=== PATIENT | male | born 1975 | race Caucasian/White ===

== ENCOUNTER 2018-11-03 20:09 | Emergency (ER) | payer SELFPAY ==
[~2018-11-03] VITALS: Ht 172.7 cm; Wt 81.6 kg
--- NOTE | 2018-11-03 20:11 | ED.ADGEN ---
Past History Past Medical History: Alcoholism, Other Smoking: Cigarettes Drug Use: Marijuana Adult General Chief Complaint Chief Complaint ".. I just got out of the [facility].. my girl friend had me arrested.. and I noticed my feet are numb .. 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 No history of injury. Patient does have a history of polysubstance abuse including alcohol abuse. No recent travel. Denies trauma. No history of fever. No history immunosuppression given. Patient denies any problems with defecation or urination. Patient has vibratory 128 sensation in feet but states it is less than it is in his hands. Does have 1-2 beat clonus with dorsal flexion and patellar DTRs. Distal capillary refill in feet is equal to what is in his hands. Patient recently released from a [facility] and was told to come into [facility] emergency department. Review of Systems Review of Systems Constitutional: Denies fever or chills [] Eyes: Denies change in visual acuity, redness, or eye pain [] HENT: Denies nasal congestion or sore throat [] Respiratory: Denies cough or shortness of breath [] Cardiovascular: No additional information not addressed in HPI [] GI: Denies abdominal pain, nausea, vomiting, bloody stools or diarrhea [] : Denies dysuria or hematuria [] Musculoskeletal: Denies back pain or joint pain []complains of bilateral feet numbness and pain Integument: Denies rash or skin lesions [] Neurologic: Denies headache, focal weakness or sensory changes [] Endocrine: Denies polyuria or polydipsia [] All other systems were reviewed and found to be within normal limits, except as documented in this note. Family History Family History Diabetes and hypertension Current Medications Current Medications Current Medications Medications (Trade) Dose Ordered Sig/Dinh Start Time Stop Time Status Last Admin Dose Admin Albuterol Sulfate (Ventolin Hfa Inhaler) 2 puff 1X ONCE 11/03/18 22:00 11/03/18 22:01 DC 11/03/18 21:51 2 PUFF Aspirin (Children'S Aspirin) 324 mg 1X ONCE 11/03/18 22:00 11/03/18 22:01 DC 11/03/18 21:51 324 MG Multivitamins/ Minerals 10 ml/ Folic Acid 1 mg/ Thiamine HCl 100 mg/Lactated Ringer's 1,011.2 ml @ 1,011.2 mls/hr 1X ONCE 11/03/18 22:00 11/03/18 22:59 DC 11/03/18 22:08 1,011.2 MLS/HR See nursing for home meds Allergies Allergies Allergies Coded Allergies Type Severity Reaction Last Updated Verified No Known Drug Allergies 11/03/18 No No known drug allergies Physical Exam Physical Exam Constitutional: , no acute distress, non-toxic appearance. [] HENT: Normocephalic, atraumatic, bilateral external ears normal, oropharynx moist, no oral exudates, nose normal. [] Eyes: PERRLA, EOMI, conjunctiva normal, no discharge. [] Neck: Normal range of motion, no tenderness, supple, no stridor. [] Cardiovascular:Heart rate regular rhythm, no murmur [] Lungs & Thorax: Bilateral breath sounds equal apex with scattered wheezes on auscultation [] Abdomen: Bowel sounds normal, soft, no tenderness, no masses, no pulsatile masses. [] No saddle loss noted. Skin: Warm, dry, no erythema, no rash. [] Back: No tenderness, no CVA tenderness. [] Extremities: No tenderness, no cyanosis, no clubbing, ROM intact, no edema. [] Neurologic: Alert and oriented X 3, normal motor function, normal sensory function, no focal deficits noted. [] Vib. 128 present in both feet. Some clonus 1-2 beat with forced dorsal flexeion and patellar reflex. Psychologic: Affect anxious l, judgement normal, mood normal. [] Current Patient Data Vital Signs Vital Signs Date Time Temp Pulse Resp B/P (MAP) Pulse Ox O2 Delivery O2 Flow Rate FiO2 11/03/18 23:00 96 18 130/88 (102) 97 Room Air 11/03/18 20:09 98.3 Lab Results Laboratory Tests Test 11/03/18 20:20 11/03/18 21:15 Urine Collection Type Unknown Urine Color Colorless Urine Clarity Clear Urine pH 7.0 Urine Specific [place] <=1.005 Urine Protein Neg (NEG-TRACE) Urine Glucose (UA) Neg mg/dL (NEG) Urine Ketones (Stick) Neg mg/dL (NEG) Urine Blood Neg (NEG) Urine Nitrite Neg (NEG) Urine Bilirubin Neg (NEG) Urine Urobilinogen Dipstick 0.2 mg/dL (0.2 mg/dL) Urine Leukocyte Esterase Neg (NEG) Urine RBC 0 /HPF (0-2) Urine WBC Occ /HPF (0-4) Urine Squamous Epithelial Cells None /LPF Urine Bacteria 0 /HPF (0-FEW) Urine Opiates Screen Neg (NEG) Urine Methadone Screen Neg (NEG) Urine Barbiturates Neg (NEG) Urine Phencyclidine Screen Neg (NEG) Urine Amphetamine/Methamphetamine Neg (NEG) Urine Benzodiazepines Screen Neg (NEG) Urine Cocaine Screen Neg (NEG) Urine Cannabinoids Screen Neg (NEG) Urine Ethyl Alcohol Pos (NEG) White Blood Count 6.0 x10^3/uL (4.0-11.0) Red Blood Count 5.19 x10^6/uL (4.30-5.70) Hemoglobin 17.5 g/dL (13.0-17.5) Hematocrit 50.2 % (39.0-53.0) Mean Corpuscular Volume 97 fL (79-100) Mean Corpuscular Hemoglobin 34 pg (25-35) Mean Corpuscular Hemoglobin Concent 35 g/dL (31-37) Red Cell Distribution Width 13.5 % (11.5-14.5) Platelet Count 193 x10^3/uL (140-400) Neutrophils (%) (Auto) 55 % (31-73) Lymphocytes (%) (Auto) 30 % (24-48) Monocytes (%) (Auto) 12 % (0-9) H Eosinophils (%) (Auto) 2 % (0-3) Basophils (%) (Auto) 1 % (0-3) Neutrophils # (Auto) 3.3 x10^3uL (1.8-7.7) Lymphocytes # (Auto) 1.8 x10^3/uL (1.0-4.8) Monocytes # (Auto) 0.7 x10^3/uL (0.0-1.1) Eosinophils # (Auto) 0.1 x10^3/uL (0.0-0.7) Basophils # (Auto) 0.0 x10^3/uL (0.0-0.2) Erythrocyte Sedimentation Rate 1 (0-15) Prothrombin Time 10.5 SEC (9.4-11.4) Prothrombin Time INR 1.1 (0.9-1.1) PTT 26 SEC (23-33) Sodium Level 146 mmol/L (136-145) H Potassium Level 3.4 mmol/L (3.5-5.1) L Chloride Level 105 mmol/L (98-107) Carbon Dioxide Level 30 mmol/L (21-32) Anion Gap 11 (6-14) Blood Urea Nitrogen 8 mg/dL (8-26) Creatinine 0.8 mg/dL (0.7-1.3) Estimated GFR (Cockcroft-Gault) 106.5 Glucose Level 100 mg/dL (70-99) H Calcium Level 8.8 mg/dL (8.5-10.1) Magnesium Level 2.1 mg/dL (1.8-2.4) Total Bilirubin 0.4 mg/dL (0.2-1.0) Direct Bilirubin 0.1 mg/dL (0.0-0.2) Aspartate Amino Transferase (AST) 102 U/L (15-37) H Alanine Aminotransferase (ALT) 140 U/L (16-63) H Alkaline Phosphatase 81 U/L (46-116) Ammonia < 10 mcmol/L (11-34) L Creatine Kinase 697 U/L (39-308) H Troponin I Quantitative < 0.017 ng/mL (0-0.055) KV-Jgy-A-Type Natriuretic Peptide 64 pg/mL (0-124) Total Protein 6.8 g/dL (6.4-8.2) Albumin 3.9 g/dL (3.4-5.0) Ethyl Alcohol Level 250 mg/dL (0-10) H EKG EKG [] Radiology/Procedures Radiology/Procedures CT concentric []disc dz L3,4,5. - Mild- see formal report when available. Course & Med Decision Making Course & Med Decision Making Pertinent Labs and Imaging studies reviewed. (See chart for details). Continue B complex vitamins. Stop alcohol and illicit drug use. Stop smoking. Followup with primary and neurology. Tylenol and Ibuprofen for discomfort. Return if any concerns. [] Final Impression Final Impression 1. Plantar- Stocking Neuropathy 2. Hx. Alcohol Abuse 3. Hx. Polysubstance Abuse 4. Tobacco Abuse[] 5. Concentric Disc Dz L 3,4,5. 6. Elevated AST ALT 102/140 Dragon Disclaimer Dragon Disclaimer This electronic medical record was generated, in whole or in part, using a voice recognition dictation system. RELL MORRISON MD Nov 03, 2018 20:11
--- NOTE | 2018-11-03 21:18 | EKG ---
[address] [address] Test Date: 2018-11-03 Test Time: 21:11:07 Pat Name: LOUANN MYERS Department: Room: Gender: M S[employer]aker: : [id number] Requested By: RELL MORRISON Order Number: [id number] Reading MD: Measurements Intervals [place] Rate: 94 P: 56 GA: 148 QRS: 42 QRSD: 94 T: 22 QT: 360 QTc: 450 Interpretive Statements SINUS RHYTHM NO SPECIFIC ECG ABNORMALITIES RI6.01 Unconfirmed report No previous ECG available for comparison
[2018-11-03 21:49] LABS: BASO % 1 % (0-3); EOS # 0.1 x10^3/uL (0.0-0.7); EOS % 2 % (0-3); HEMATOCRIT 50.2 % (39.0-53.0); HEMOGLOBIN 17.5 g/dL (13.0-17.5); LYMPH # 1.8 x10^3/uL (1.0-4.8); LYMPH % 30 % (24-48); MEAN CORPUSCULAR HEMOGLOBIN 34 pg (25-35); MEAN CORPUSCULAR HGB CONC 35 g/dL (31-37); MEAN CORPUSCULAR VOLUME 97 fL (79-100); MONO # 0.7 x10^3/uL (0.0-1.1); MONO % 12 % (0-9); NEUT # 3.3 x10^3uL (1.8-7.7); NEUT % 55 % (31-73); PLATELET COUNT 193 x10^3/uL (140-400); RED BLOOD COUNT 5.19 x10^6/uL (4.30-5.70); RED CELL DISTRIBUTION WIDTH 13.5 % (11.5-14.5)
[2018-11-03] MEDS ORDERED: MVI, ADULT NO.4 WITH VIT K 10 ML, FOLIC ACID SYRINGE for ER 1 MG, THIAMINE INJ 100 MG i... IV ONE ×4 (22:00)
[2018-11-03] MEDS ORDERED: ASPIRIN 81 MG TAB.CHEW PO ONE (22:00)
[2018-11-03] MEDS ORDERED: ALBUTEROL SULFATE 8GM INHALER. INH ONE (22:00)
[2018-11-03 22:07] LABS: ALBUMIN 3.9 g/dL (3.4-5.0); CALCIUM 8.8 mg/dL (8.5-10.1); CREATININE 0.8 mg/dL (0.7-1.3); DIRECT BILIRUBIN 0.1 mg/dL (0.0-0.2); GFR 106.5; MAGNESIUM 2.1 mg/dL (1.8-2.4); POTASSIUM 3.4 mmol/L (3.5-5.1); TOTAL BILIRUBIN 0.4 mg/dL (0.2-1.0); TOTAL PROTEIN 6.8 g/dL (6.4-8.2)
[2018-11-03 22:08] LABS: BARBITURATES NEG (NEG); BENZODIAZEPINES NEG (NEG); CANNABINOIDS NEG (NEG); COCAINE NEG (NEG); METHADONE NEG (NEG); OPIATES NEG (NEG); PHENCYCLIDINE NEG (NEG)
[2018-11-03 22:09] LABS: AMPHETAMINE/METHAMPHETAMINE NEG (NEG)
--- NOTE | 2018-11-03 22:13 | RAD ---
Examination: CT LUMBAR SPINE WO CONTRAST History: Clonus, feet numbness and tingling, weakness Comparison/Correlation: None Findings: Axial images of the lumbar spine were obtained. Sagittal and coronal reformatted images were provided. Alignment is normal. Mild L3-4 and L4-5 disc space narrowing is present. Concentric disc bulge at L3-4 and L4-5 noted with mild thecal sac effacement. L3-4 spinal canal narrowing is mild. Mild ligament of flavum hypertrophy at these levels noted. There is no effacement of the exiting nerve roots definitely identified. Vertebral body heights are adequate. Visualized retroperitoneal soft tissues are unremarkable. Impression: Concentric disc bulge at L3-4 with mild spinal canal narrowing. Mild L4-5 concentric disc bulge. No definite effacement of exiting nerve roots. Electronically signed by: Austen Murray MD (11/03/2018 10:09 PM) [facility]
[2018-11-03 22:22] LABS: BACTERIA,URINE 0 /HPF (0-FEW); BILIRUBIN,URINE NEG (NEG); CLARITY,URINE CLEAR; COLOR,URINE COLORLESS; GLUCOSE,URINE NEG (NEG); NITRITE,URINE NEG (NEG); RBC,URINE 0 /HPF (0-2); UROBILINOGEN,URINE 0.2 mg/dL (0.2 mg/dL); WBC,URINE OCC /HPF (0-4)
[2018-11-03 23:00] VITALS: BP 130/88
[2018-11-03 23:03] LABS: SEDIMENTATION RATE 1 (0-15)
--- NOTE | 2018-11-03 23:56 | RAD ---
Examination: CHEST PA LATERAL History: Cough, tingling in legs, weakness Comparison/Correlation: None Findings: PA and lateral views of chest were obtained. Heart size and pulmonary vasculature are normal. No infiltrate, pleural effusion, or pneumothorax. Bony structures are unremarkable. Impression: No active disease. Electronically signed by: Austen Murray MD (11/03/2018 11:52 PM) [facility]
== END 2018-11-03 23:00 | disposition home or self-care (01) ==
LOC: ER 20:09
DX: G57.63 Lesion of plantar nerve, bilateral lower limbs (principal); F10.20 Alcohol dependence, uncomplicated; F17.210 Nicotine dependence, cigarettes, uncomplicated; F19.10 Other psychoactive substance abuse, uncomplicated; F12.10 Cannabis abuse, uncomplicated; M51.86 Other intervertebral disc disorders, lumbar region; R74.0 Nonspecific elevation of levels of transaminase and lactic acid dehydrogenase [LDH]; Y90.8 Blood alcohol level of 240 mg/100 ml or more
CPT/HCPCS: 36415; 71046; 72131; 80048; 80076; 80307; 81001; 82140; 82550; 83735; 83880; 84443; 84484; 85025; 85610; 85651; 85730; 93005; 94640; 96365; 99284; G0480; J7120; J7613; 94664

== ENCOUNTER 2019-03-07 22:47 | Emergency (ER) | payer SELFPAY ==
[~2019-03-07] VITALS: Ht 172.7 cm; Wt 81.6 kg
--- NOTE | 2019-03-07 22:55 | ED.ADGEN ---
Past History Past Medical History: Alcoholism, Other Smoking: Cigarettes Alcohol Use: Heavy Drug Use: Marijuana Adult General Chief Complaint Chief Complaint ".. I just want to go to hotel..."..."I was just drinking some beer and whiskey tonight... I usually drink vodka.. just let me go.. I ve got to be at work this morning.. I work at [employer]... " HPI HPI Patient is a 43 year old male who presents with head lacerations and hematoma. Pt. PD referral from out front of jail. Pt. found in street. Pt appear very intoxicated and large hematoma to posterior scalp. Pt. has two laceration to posterior scalp. Pt. admits to drinking beer and whiskey tonight. . . Pt. does not remember hx prior fall and post fall. Pt. does not remember last tetanus. Refuses to wear C- collar and keeps removing his pressure dressing on his scalp lacerations. Pt. moving all extremities on request. Is discoordinated. Has a strong smell intoxicants on his breath. Constantly needs to be reminded to stay in bed and cooperated with exam. Review of Systems Review of Systems Constitutional: Denies fever or chills [] Eyes: Denies change in visual acuity, redness, or eye pain [] HENT: Denies nasal congestion or sore throat [] Respiratory: Denies cough or shortness of breath [] Cardiovascular: No additional information not addressed in HPI [] GI: Denies abdominal pain, nausea, vomiting, bloody stools or diarrhea [] : Denies dysuria or hematuria [] Musculoskeletal: Denies back pain or joint pain [] Integument: Denies rash or skin lesions [] Neurologic:Complaints of headache,. Denies focal weakness or sensory changes [] Endocrine: Denies polyuria or polydipsia [] All other systems were reviewed and found to be within normal limits, except as documented in this note. Family History Family History Non-contributory Current Medications Current Medications Current Medications Medications (Trade) Dose Ordered Sig/Dinh Start Time Stop Time Status Last Admin Dose Admin Diphtheria/ Tetanus/Acell Pertussis (Boostrix) 0.5 ml ONCE ONCE 03/07/19 23:30 03/07/19 23:31 DC 03/07/19 23:30 0.5 ML Folic Acid (FOLIC ACID SYRINGE for ER) 5 mg STK-MED ONCE 03/08/19 00:03 03/08/19 00:04 DC Lidocaine HCl 20 ml 1X ONCE 03/07/19 23:30 03/07/19 23:31 DC 03/07/19 23:30 20 ML Multivitamins/ Minerals (Infuvite Adult) 10 ml STK-MED ONCE 03/08/19 00:03 03/08/19 00:04 DC Multivitamins/ Minerals 10 ml/ Folic Acid 1 mg/ Thiamine HCl 100 mg/Lactated Ringer's 1,011.2 ml @ 1,011.2 mls/hr 1X ONCE 03/08/19 02:15 03/08/19 02:40 DC 03/08/19 01:00 1,011.2 MLS/HR Thiamine HCl (Thiamine Im) 200 mg STK-MED ONCE 03/08/19 00:03 03/08/19 00:04 DC Allergies Allergies Allergies Coded Allergies Type Severity Reaction Last Updated Verified No Known Drug Allergies 11/03/18 No Physical Exam Physical Exam Constitutional: Moderately acue distress, very intoxicated in appearance. [] HENT: Normocephalic, larger hematoma and two laceration posterior scalp. , bilateral external ears normal, oropharynx moist, no oral exudates, nose normal. Very poor dentition. Eyes: PERRLA, EOMI, conjunctiva normal, no discharge. [] Neck: Normal range of motion, no tenderness, supple, no stridor. [] Refuses to wear collar. Cardiovascular:Heart rate regular rhythm, no murmur [] Lungs & Thorax: Bilateral breath sounds equal at apexes with scattered wheezes on auscultation [] Abdomen: Bowel sounds normal, soft, no tenderness, no masses, no pulsatile masses. [] Skin: Warm, dry, no erythema, no rash. [] Back: No tenderness, no CVA tenderness. Contusion Rt. shoulder blade. [] Extremities: No tenderness, no cyanosis, no clubbing, ROM intact, no edema. [] Neurologic: Alert and oriented x 2, , moves all ext. on request, distal sensation present, discoordinated. Requires constant re-direction to keep him from getting out of bed and pulling off his pressure dressing. Psychologic: , judgement impaired, mood normal. [] Current Patient Data Vital Signs Vital Signs Date Time Temp Pulse Resp B/P (MAP) Pulse Ox O2 Delivery O2 Flow Rate FiO2 03/08/19 01:05 91 22 126/85 (99) 96 Nasal Cannula 3.0 03/07/19 23:00 97.9 Lab Results Laboratory Tests Test 03/07/19 23:00 White Blood Count 10.2 x10^3/uL (4.0-11.0) Red Blood Count 5.26 x10^6/uL (4.30-5.70) Hemoglobin 17.6 g/dL (13.0-17.5) H Hematocrit 51.3 % (39.0-53.0) Mean Corpuscular Volume 98 fL (79-100) Mean Corpuscular Hemoglobin 33 pg (25-35) Mean Corpuscular Hemoglobin Concent 34 g/dL (31-37) Red Cell Distribution Width 15.2 % (11.5-14.5) H Platelet Count 289 x10^3/uL (140-400) Neutrophils (%) (Auto) 59 % (31-73) Lymphocytes (%) (Auto) 30 % (24-48) Monocytes (%) (Auto) 8 % (0-9) Eosinophils (%) (Auto) 3 % (0-3) Basophils (%) (Auto) 1 % (0-3) Neutrophils # (Auto) 6.0 x10^3uL (1.8-7.7) Lymphocytes # (Auto) 3.0 x10^3/uL (1.0-4.8) Monocytes # (Auto) 0.8 x10^3/uL (0.0-1.1) Eosinophils # (Auto) 0.3 x10^3/uL (0.0-0.7) Basophils # (Auto) 0.1 x10^3/uL (0.0-0.2) Prothrombin Time 9.8 SEC (9.4-11.4) Prothrombin Time INR 1.0 (0.9-1.1) PTT 27 SEC (23-33) D-Dimer (Michelle) 0.39 mg/L (0.00-0.50) Urine Collection Type Void Urine Color Yellow Urine Clarity Clear Urine pH 6.0 Urine Specific Lititz <=1.005 Urine Protein Neg (NEG-TRACE) Urine Glucose (UA) Neg mg/dL (NEG) Urine Ketones (Stick) Neg mg/dL (NEG) Urine Blood Trace (NEG) Urine Nitrite Neg (NEG) Urine Bilirubin Neg (NEG) Urine Urobilinogen Dipstick 0.2 mg/dL (0.2 mg/dL) Urine Leukocyte Esterase Neg (NEG) Urine RBC 0 /HPF (0-2) Urine WBC 0 /HPF (0-4) Urine Bacteria 0 /HPF (0-FEW) Sodium Level 143 mmol/L (136-145) Potassium Level 3.6 mmol/L (3.5-5.1) Chloride Level 103 mmol/L (98-107) Carbon Dioxide Level 33 mmol/L (21-32) H Anion Gap 7 (6-14) Blood Urea Nitrogen 15 mg/dL (8-26) Creatinine 0.9 mg/dL (0.7-1.3) Estimated GFR (Cockcroft-Gault) 93.0 Glucose Level 83 mg/dL (70-99) Calcium Level 9.2 mg/dL (8.5-10.1) Magnesium Level 2.4 mg/dL (1.8-2.4) Total Bilirubin 0.2 mg/dL (0.2-1.0) Direct Bilirubin 0.1 mg/dL (0.0-0.2) Aspartate Amino Transferase (AST) 35 U/L (15-37) Alanine Aminotransferase (ALT) 53 U/L (16-63) Alkaline Phosphatase 101 U/L (46-116) Creatine Kinase 227 U/L (39-308) Troponin I Quantitative < 0.017 ng/mL (0-0.055) Total Protein 8.1 g/dL (6.4-8.2) Albumin 4.4 g/dL (3.4-5.0) Lipase 231 U/L (73-393) Urine Opiates Screen Neg (NEG) Urine Methadone Screen Neg (NEG) Urine Barbiturates Neg (NEG) Urine Phencyclidine Screen Neg (NEG) Urine Amphetamine/Methamphetamine Neg (NEG) Urine Benzodiazepines Screen Neg (NEG) Urine Cocaine Screen Neg (NEG) Urine Cannabinoids Screen Neg (NEG) Ethyl Alcohol Level 336 mg/dL (0-10) H Urine Ethyl Alcohol Pos (NEG) EKG EKG My interpretation EKG shows a sinus rhythm at 90 bpm with no acute morphology.[] Radiology/Procedures Radiology/Procedures Interpretation chest x-ray shows no acute cardiopulmonary findings. My interpretation CT head shows large hematoma posterior scalp as well as a finding consistent with a right tentorium bleed. No shift. See formal report when available[] Course & Med Decision Making Course & Med Decision Making Pertinent Labs and Imaging studies reviewed. (See chart for details) Procedure note- laceration repair- clean area scalp hematoma and lacerations with peroxide and irrigated with saline. 1 x2.5 cm and 1 x 5 cm laceration. Betadine and NS irrigation. Injected edge of lacerations. Closed with 3-0 Vircyl x 10. Achieved good hemostasis. Re application of pressure dressing. Discussed presentation, testing and tx. plan with Dr. Stewart- Will accept pt. in transfer. Shima-Dr. Boland advised will consult on pt. at [facility]. [] Final Impression Final Impression 1. Head Injury.- Acute Cerebral Bleed Rt. Tentorium 2. Head Lacerations[] x 2 3. Head Hematoma 4. Alcohol Intoxication 336 Dragon Disclaimer Dragon Disclaimer This electronic medical record was generated, in whole or in part, using a voice recognition dictation system. Discharge Summary Visit Information Final Diagnosis Problems Medical Problems: (1) Acute cerebral hemorrhage Status: Acute Brief Hospital Course Allergies Allergies Coded Allergies Type Severity Reaction Last Updated Verified No Known Drug Allergies 11/03/18 No Vital Signs Vital Signs Date Time Temp Pulse Resp B/P (MAP) Pulse Ox O2 Delivery O2 Flow Rate FiO2 03/08/19 01:05 91 22 126/85 (99) 96 Nasal Cannula 3.0 03/07/19 23:00 97.9 Lab Results Laboratory Tests Test 03/07/19 23:00 White Blood Count 10.2 x10^3/uL (4.0-11.0) Red Blood Count 5.26 x10^6/uL (4.30-5.70) Hemoglobin 17.6 g/dL (13.0-17.5) Hematocrit 51.3 % (39.0-53.0) Mean Corpuscular Volume 98 fL (79-100) Mean Corpuscular Hemoglobin 33 pg (25-35) Mean Corpuscular Hemoglobin Concent 34 g/dL (31-37) Red Cell Distribution Width 15.2 % (11.5-14.5) Platelet Count 289 x10^3/uL (140-400) Neutrophils (%) (Auto) 59 % (31-73) Lymphocytes (%) (Auto) 30 % (24-48) Monocytes (%) (Auto) 8 % (0-9) Eosinophils (%) (Auto) 3 % (0-3) Basophils (%) (Auto) 1 % (0-3) Neutrophils # (Auto) 6.0 x10^3uL (1.8-7.7) Lymphocytes # (Auto) 3.0 x10^3/uL (1.0-4.8) Monocytes # (Auto) 0.8 x10^3/uL (0.0-1.1) Eosinophils # (Auto) 0.3 x10^3/uL (0.0-0.7) Basophils # (Auto) 0.1 x10^3/uL (0.0-0.2) Prothrombin Time 9.8 SEC (9.4-11.4) Prothromb Time International Ratio 1.0 (0.9-1.1) Activated Partial Thromboplast Time 27 SEC (23-33) D-Dimer (Michelle) 0.39 mg/L (0.00-0.50) Urine Collection Type Void Urine Color Yellow Urine Clarity Clear Urine pH 6.0 Urine Specific Lititz <=1.005 Urine Protein Neg (NEG-TRACE) Urine Glucose (UA) Neg mg/dL (NEG) Urine Ketones (Stick) Neg mg/dL (NEG) Urine Blood Trace (NEG) Urine Nitrite Neg (NEG) Urine Bilirubin Neg (NEG) Urine Urobilinogen Dipstick 0.2 mg/dL (0.2 mg/dL) Urine Leukocyte Esterase Neg (NEG) Urine RBC 0 /HPF (0-2) Urine WBC 0 /HPF (0-4) Urine Bacteria 0 /HPF (0-FEW) Sodium Level 143 mmol/L (136-145) Potassium Level 3.6 mmol/L (3.5-5.1) Chloride Level 103 mmol/L (98-107) Carbon Dioxide Level 33 mmol/L (21-32) Anion Gap 7 (6-14) Blood Urea Nitrogen 15 mg/dL (8-26) Creatinine 0.9 mg/dL (0.7-1.3) Estimated GFR (Cockcroft-Gault) 93.0 Glucose Level 83 mg/dL (70-99) Calcium Level 9.2 mg/dL (8.5-10.1) Magnesium Level 2.4 mg/dL (1.8-2.4) Total Bilirubin 0.2 mg/dL (0.2-1.0) Direct Bilirubin 0.1 mg/dL (0.0-0.2) Aspartate Amino Transf (AST/SGOT) 35 U/L (15-37) Alanine Aminotransferase (ALT/SGPT) 53 U/L (16-63) Alkaline Phosphatase 101 U/L (46-116) Creatine Kinase 227 U/L (39-308) Troponin I Quantitative < 0.017 ng/mL (0-0.055) Total Protein 8.1 g/dL (6.4-8.2) Albumin 4.4 g/dL (3.4-5.0) Lipase 231 U/L (73-393) Urine Opiates Screen Neg (NEG) Urine Methadone Screen Neg (NEG) Urine Barbiturates Neg (NEG) Urine Phencyclidine Screen Neg (NEG) Urine Amphetamine/Methamphetamine Neg (NEG) Urine Benzodiazepines Screen Neg (NEG) Urine Cocaine Screen Neg (NEG) Urine Cannabinoids Screen Neg (NEG) Ethyl Alcohol Level 336 mg/dL (0-10) Urine Ethyl Alcohol Pos (NEG) Brief Hospital Course Mr. Sarkar is a 43 old male who presented with head laceration and Cerebral traumatic bleed. Transfer to [facility] Dr. Stewart-Consult with Dr. Boland. Discharge Information Condition at Discharge: Stable Dischare Medications Current Medications Diphtheria/ Tetanus/Acell Pertussis (Boostrix) 0.5 ml ONCE ONCE VAX IM Last administered on 03/07/19at 23:30; Admin Dose 0.5 ML; Start 03/07/19 at 23:30; Stop 03/07/19 at 23:31; Status DC Lidocaine HCl 20 ml 1X ONCE IJ Last administered on 03/07/19at 23:30; Admin Dose 20 ML; Start 03/07/19 at 23:30; Stop 03/07/19 at 23:31; Status DC Thiamine HCl (Thiamine Im) 200 mg STK-MED ONCE IM ; Start 03/08/19 at 00:03; Stop 03/08/19 at 00:04; Status DC Multivitamins/ Minerals (Infuvite Adult) 10 ml STK-MED ONCE IV ; Start 03/08/19 at 00:03; Stop 03/08/19 at 00:04; Status DC Folic Acid (FOLIC ACID SYRINGE for ER) 5 mg STK-MED ONCE IV ; Start 03/08/19 at 00:03; Stop 03/08/19 at 00:04; Status DC Multivitamins/ Minerals 10 ml/ Folic Acid 1 mg/ Thiamine HCl 100 mg/Lactated Ringer's 1,011.2 ml @ 1,011.2 mls/hr 1X ONCE IV Last administered on 03/08/19at 01:00; Admin Dose 1,011.2 MLS/HR; Start 03/08/19 at 02:15; Stop 03/08/19 at 02:40; Status DC Discharge Summary Visit Information Final Diagnosis Problems Medical Problems: (1) Acute cerebral hemorrhage Status: Acute Brief Hospital Course Allergies Allergies Coded Allergies Type Severity Reaction Last Updated Verified No Known Drug Allergies 11/03/18 No Vital Signs Vital Signs Date Time Temp Pulse Resp B/P (MAP) Pulse Ox O2 Delivery O2 Flow Rate FiO2 03/08/19 01:05 91 22 126/85 (99) 96 Nasal Cannula 3.0 03/07/19 23:00 97.9 Lab Results Laboratory Tests Test 03/07/19 23:00 White Blood Count 10.2 x10^3/uL (4.0-11.0) Red Blood Count 5.26 x10^6/uL (4.30-5.70) Hemoglobin 17.6 g/dL (13.0-17.5) Hematocrit 51.3 % (39.0-53.0) Mean Corpuscular Volume 98 fL (79-100) Mean Corpuscular Hemoglobin 33 pg (25-35) Mean Corpuscular Hemoglobin Concent 34 g/dL (31-37) Red Cell Distribution Width 15.2 % (11.5-14.5) Platelet Count 289 x10^3/uL (140-400) Neutrophils (%) (Auto) 59 % (31-73) Lymphocytes (%) (Auto) 30 % (24-48) Monocytes (%) (Auto) 8 % (0-9) Eosinophils (%) (Auto) 3 % (0-3) Basophils (%) (Auto) 1 % (0-3) Neutrophils # (Auto) 6.0 x10^3uL (1.8-7.7) Lymphocytes # (Auto) 3.0 x10^3/uL (1.0-4.8) Monocytes # (Auto) 0.8 x10^3/uL (0.0-1.1) Eosinophils # (Auto) 0.3 x10^3/uL (0.0-0.7) Basophils # (Auto) 0.1 x10^3/uL (0.0-0.2) Prothrombin Time 9.8 SEC (9.4-11.4) Prothromb Time International Ratio 1.0 (0.9-1.1) Activated Partial Thromboplast Time 27 SEC (23-33) D-Dimer (Michelle) 0.39 mg/L (0.00-0.50) Urine Collection Type Void Urine Color Yellow Urine Clarity Clear Urine pH 6.0 Urine Specific Lititz <=1.005 Urine Protein Neg (NEG-TRACE) Urine Glucose (UA) Neg mg/dL (NEG) Urine Ketones (Stick) Neg mg/dL (NEG) Urine Blood Trace (NEG) Urine Nitrite Neg (NEG) Urine Bilirubin Neg (NEG) Urine Urobilinogen Dipstick 0.2 mg/dL (0.2 mg/dL) Urine Leukocyte Esterase Neg (NEG) Urine RBC 0 /HPF (0-2) Urine WBC 0 /HPF (0-4) Urine Bacteria 0 /HPF (0-FEW) Sodium Level 143 mmol/L (136-145) Potassium Level 3.6 mmol/L (3.5-5.1) Chloride Level 103 mmol/L (98-107) Carbon Dioxide Level 33 mmol/L (21-32) Anion Gap 7 (6-14) Blood Urea Nitrogen 15 mg/dL (8-26) Creatinine 0.9 mg/dL (0.7-1.3) Estimated GFR (Cockcroft-Gault) 93.0 Glucose Level 83 mg/dL (70-99) Calcium Level 9.2 mg/dL (8.5-10.1) Magnesium Level 2.4 mg/dL (1.8-2.4) Total Bilirubin 0.2 mg/dL (0.2-1.0) Direct Bilirubin 0.1 mg/dL (0.0-0.2) Aspartate Amino Transf (AST/SGOT) 35 U/L (15-37) Alanine Aminotransferase (ALT/SGPT) 53 U/L (16-63) Alkaline Phosphatase 101 U/L (46-116) Creatine Kinase 227 U/L (39-308) Troponin I Quantitative < 0.017 ng/mL (0-0.055) Total Protein 8.1 g/dL (6.4-8.2) Albumin 4.4 g/dL (3.4-5.0) Lipase 231 U/L (73-393) Urine Opiates Screen Neg (NEG) Urine Methadone Screen Neg (NEG) Urine Barbiturates Neg (NEG) Urine Phencyclidine Screen Neg (NEG) Urine Amphetamine/Methamphetamine Neg (NEG) Urine Benzodiazepines Screen Neg (NEG) Urine Cocaine Screen Neg (NEG) Urine Cannabinoids Screen Neg (NEG) Ethyl Alcohol Level 336 mg/dL (0-10) Urine Ethyl Alcohol Pos (NEG) Brief Hospital Course Discharge Information Dischare Medications Current Medications Diphtheria/ Tetanus/Acell Pertussis (Boostrix) 0.5 ml ONCE ONCE VAX IM Last administered on 03/07/19at 23:30; Admin Dose 0.5 ML; Start 03/07/19 at 23:30; Stop 03/07/19 at 23:31; Status DC Lidocaine HCl 20 ml 1X ONCE IJ Last administered on 03/07/19at 23:30; Admin Dose 20 ML; Start 03/07/19 at 23:30; Stop 03/07/19 at 23:31; Status DC Thiamine HCl (Thiamine Im) 200 mg STK-MED ONCE IM ; Start 03/08/19 at 00:03; Stop 03/08/19 at 00:04; Status DC Multivitamins/ Minerals (Infuvite Adult) 10 ml STK-MED ONCE IV ; Start 03/08/19 at 00:03; Stop 03/08/19 at 00:04; Status DC Folic Acid (FOLIC ACID SYRINGE for ER) 5 mg STK-MED ONCE IV ; Start 03/08/19 at 00:03; Stop 03/08/19 at 00:04; Status DC Multivitamins/ Minerals 10 ml/ Folic Acid 1 mg/ Thiamine HCl 100 mg/Lactated Ringer's 1,011.2 ml @ 1,011.2 mls/hr 1X ONCE IV Last administered on 03/08/19at 01:00; Admin Dose 1,011.2 MLS/HR; Start 03/08/19 at 02:15; Stop 03/08/19 at 02:40; Status DC Dragon Disclaimer This chart was dictated in whole or in part using Voice Recognition software in a busy, high-work load, and often noisy Emergency Department environment. It may contain unintended and wholly unrecognized errors or omissions. Dragon Disclaimer This chart was dictated in whole or in part using Voice Recognition software in a busy, high-work load, and often noisy Emergency Department environment. It may contain unintended and wholly unrecognized errors or omissions. RELL MORRISON MD March 07, 2019 22:55
[2019-03-07] MEDS ORDERED: LIDOCAINE 2% 20 ML VIAL. IJ ONE (23:30)
[2019-03-07] MEDS ORDERED: DIPHTH,PERTUSS(ACELL),TET TOX 0.5 ML DISP.SYRIN. VAX IM ONE (23:30)
[2019-03-07 23:44] LABS: BASO # 0.1 x10^3/uL (0.0-0.2); BASO % 1 % (0-3); EOS # 0.3 x10^3/uL (0.0-0.7); EOS % 3 % (0-3); HEMATOCRIT 51.3 % (39.0-53.0); HEMOGLOBIN 17.6 g/dL (13.0-17.5); LYMPH % 30 % (24-48); MEAN CORPUSCULAR HEMOGLOBIN 33 pg (25-35); MEAN CORPUSCULAR HGB CONC 34 g/dL (31-37); MEAN CORPUSCULAR VOLUME 98 fL (79-100); MONO # 0.8 x10^3/uL (0.0-1.1); MONO % 8 % (0-9); NEUT % 59 % (31-73); PLATELET COUNT 289 x10^3/uL (140-400); RED BLOOD COUNT 5.26 x10^6/uL (4.30-5.70); RED CELL DISTRIBUTION WIDTH 15.2 % (11.5-14.5); WHITE BLOOD COUNT 10.2 x10^3/uL (4.0-11.0)
[2019-03-07 23:49] LABS: ALBUMIN 4.4 g/dL (3.4-5.0); CALCIUM 9.2 mg/dL (8.5-10.1); CREATININE 0.9 mg/dL (0.7-1.3); DIRECT BILIRUBIN 0.1 mg/dL (0.0-0.2); MAGNESIUM 2.4 mg/dL (1.8-2.4); POTASSIUM 3.6 mmol/L (3.5-5.1); TOTAL BILIRUBIN 0.2 mg/dL (0.2-1.0); TOTAL PROTEIN 8.1 g/dL (6.4-8.2)
[2019-03-07 23:52] LABS: BARBITURATES NEG (NEG); BENZODIAZEPINES NEG (NEG); CANNABINOIDS NEG (NEG); COCAINE NEG (NEG); METHADONE NEG (NEG); OPIATES NEG (NEG); PHENCYCLIDINE NEG (NEG)
[2019-03-07 23:54] LABS: AMPHETAMINE/METHAMPHETAMINE NEG (NEG)
[2019-03-08] MEDS ORDERED: THIAMINE IM 200 MG/2 ML VIAL. IM ONE (00:03)
[2019-03-08] MEDS ORDERED: FOLIC ACID 5 MG/ML SYRINGE for ER IV ONE (00:03)
[2019-03-08] MEDS ORDERED: MVI, ADULT NO.4 WITH VIT K 10 ML VIAL IV ONE (00:03)
[2019-03-08 00:10] LABS: BACTERIA,URINE 0 /HPF (0-FEW); BILIRUBIN,URINE NEG (NEG); CLARITY,URINE CLEAR; COLOR,URINE YELLOW; GLUCOSE,URINE NEG (NEG); NITRITE,URINE NEG (NEG); RBC,URINE 0 /HPF (0-2); UROBILINOGEN,URINE 0.2 mg/dL (0.2 mg/dL); WBC,URINE 0 /HPF (0-4)
--- NOTE | 2019-03-08 00:37 | RAD ---
RS Compliance Statement: One or more of the following individualized dose reduction techniques were utilized for this examination: 1. Automated exposure control 2. Adjustment of the mA and/or kV according to patient size 3. Use of iterative reconstruction technique CT HEAD WITHOUT CONTRAST History: Fall, intoxication, laceration and hematoma to back of head. Comparison: None. Procedure: Axial images are obtained of the head from the skull base through the vertex without IV contrast. Findings: There is acute hemorrhage along the right tentorium cerebelli. Finding seen on axial images 9-15. The ventricles and sulci are normal for the patient's age. No mass-effect, midline shift, or obvious acute infarction is identified. Basilar cisterns are patent. Bone windows demonstrate no acute calvarial abnormality. There is severe right parietal scalp hematoma. The visualized paranasal sinuses are clear. Mastoid air cells are well aerated. IMPRESSION: 1. Acute hemorrhage along the right tentorium cerebelli. 2. Severe right parietal scalp hematoma. Findings discussed with RELL MORRISON at 03/08/2019 12:32 AM. FOR INTERNAL CODING PURPOSES Critical result: RESULT CODE: (C) Electronically signed by: Trev Grady MD (03/08/2019 12:34 AM) [id number]
[2019-03-08 01:05] VITALS: BP 126/85
--- NOTE | 2019-03-08 01:38 | RAD ---
RS Compliance Statement: One or more of the following individualized dose reduction techniques were utilized for this examination: 1. Automated exposure control 2. Adjustment of the mA and/or kV according to patient size 3. Use of iterative reconstruction technique CT CERVICAL SPINE WITHOUT CONTRAST Clinical Indication: Fall, intoxication, neck pain. Comparison: None. Technique: Noncontrast helical CT of the cervical spine was performed. Axial, sagittal, and coronal reconstructions were obtained. Findings: Sensitivity is decreased due to motion artifact. A subtle fracture could be obscured. There is no evidence of acute fracture or acute malalignment. The vertebral body height and alignment are maintained. There is disc space narrowing and degenerative endplate spurring that is most advanced at C5/C6 and C6/C7. The facet joints are mildly hypertrophic. No perched or jumped facets. The craniovertebral junction is normal. Uncinate process hypertrophy of C5/C6. Visualized soft tissues of the neck demonstrate no significant abnormalities. The visualized lung apices are clear. IMPRESSION: No acute fracture or malalignment. Electronically signed by: Trev Grady MD (03/08/2019 1:36 AM) [id number]
[2019-03-08] MEDS ORDERED: MVI, ADULT NO.4 WITH VIT K 10 ML, FOLIC ACID SYRINGE for ER 1 MG, THIAMINE INJ 100 MG i... IV ONE ×4 (02:15)
--- NOTE | 2019-03-08 07:04 | EKG ---
[address] [address] Test Date: 2019-03-07 Test Time: 23:39:48 Pat Name: LOUANN MYERS Department: Room: Gender: M [employer] Operator: GALE : 1975 Requested By: RELL MORRISON Order Number: [id number] Reading MD: Dima Hale MD Measurements Intervals [place] Rate: 90 P: 71 ME: 140 QRS: 54 QRSD: 94 T: 23 QT: 350 QTc: 432 Interpretive Statements SINUS RHYTHM Electronically Signed On 04-02-2019 14:59:35 CDT by Dima Hale MD
--- NOTE | 2019-03-08 08:23 | RAD ---
AP portable chest radiograph 03/07/2019 Clinical History: Fall with chest pain. An AP erect portable digital radiograph of the chest was obtained. Comparison study is dated 11/03/2018. The cardiac and mediastinal silhouettes are within normal limits in size and configuration. No acute pulmonary infiltrate is seen. No pleural effusion or pneumothorax is noted. Degenerative changes are seen involving the thoracic spine and both shoulders. IMPRESSION: No acute abnormality is seen. Electronically signed by: Maximus Tang MD (03/08/2019 8:20 AM) [facility]
== END 2019-03-08 02:36 | disposition short-term general hospital (02) ==
LOC: ER 22:47
DX: S06.309A Unspecified focal traumatic brain injury with loss of consciousness of unspecified duration, initial encounter (principal); S01.01XA Laceration without foreign body of scalp, initial encounter; F10.129 Alcohol abuse with intoxication, unspecified; F17.210 Nicotine dependence, cigarettes, uncomplicated; Y90.8 Blood alcohol level of 240 mg/100 ml or more; X58.XXXA Exposure to other specified factors, initial encounter; Y93.89 Activity, other specified; Y92.89 Other specified places as the place of occurrence of the external cause; Y99.8 Other external cause status
CPT/HCPCS: 12001; 36415; 70450; 71045; 72125; 80048; 80076; 80307; 81001; 82550; 83690; 83735; 84443; 84484; 85025; 85379; 85610; 85730; 90471; 90715; 93005; 96365; 96366; 99285; G0480; J7120; J2001